=== PATIENT | female | born 1955 | race Caucasian/White ===

== ENCOUNTER 2022-11-29 11:47 | Day surgery (SDC) | payer MEDICARE, MEDICAID ==
[2022-11-29] VITALS (19 sets, daily range): BP systolic 120–172; BP diastolic 60–93
[~2022-11-29] VITALS: Ht 172.7 cm; Wt 66.6 kg
[2022-11-29] MEDS ORDERED: fentaNYL/PF 50MCG/1 ML 2ML syringe IV ONE (12:10)
[2022-11-29] MEDS ORDERED: MIDAZolam 1mg/ml 10ml vial IV ONE (12:10)
[2022-11-29] MEDS ORDERED: normal saline 1000ml 1,000 ML IV SCH (12:10)
[2022-11-29] MEDS ORDERED: UBID50TA3 PO (12:11)
[2022-11-29] MEDS ORDERED: AMLO10TA13 PO (12:11)
[2022-11-29] MEDS ORDERED: ATOR10TA70 PO (12:11)
[2022-11-29] MEDS ORDERED: TURM500C4 PO (12:11)
[2022-11-29] MEDS ORDERED: LOSA50TA64 PO (12:11)
== END 2022-11-29 17:50 | disposition home or self-care (01) ==
LOC: SSTAY O 11:47
PROVIDERS: ATTEND Student in an Organized Health Care Education/Training Program
DX: Q21.10 Atrial septal defect, unspecified (principal); Q21.20 Atrioventricular septal defect, unspecified as to partial or complete; I08.2 Rheumatic disorders of both aortic and tricuspid valves; I10 Essential (primary) hypertension; M81.0 Age-related osteoporosis without current pathological fracture; G43.909 Migraine, unspecified, not intractable, without status migrainosus; F41.9 Anxiety disorder, unspecified; F32.A Depression, unspecified; Z88.8 Allergy status to other drugs, medicaments and biological substances; Z79.899 Other long term (current) drug therapy; Z85.828 Personal history of other malignant neoplasm of skin
CPT/HCPCS: 93312; 93325; J2250; J3010; J7030